=== PATIENT | male | born 1965 | race Caucasian/White ===

== ENCOUNTER 2018-03-02 18:29 | Emergency (ER) | payer OTHER ==
[~2018-03-02] VITALS: Ht 172.7 cm; Wt 95.3 kg
[~2018-03-02 18:29] MED LIST: HYDROCODONE-AP1 EAC6 PO; IBUPROFEN 800800 M1 PO
[2018-03-02] MEDS ORDERED: NORCO 5-325 TA1 EAC1 PO (19:20)
[2018-03-02 19:46] VITALS: BP 140/91
== END 2018-03-02 19:47 | disposition home or self-care (01) ==
LOC: M.ERS 18:29
DX: S62.112A Displaced fracture of triquetrum [cuneiform] bone, left wrist, initial encounter for closed fracture (principal); F17.210 Nicotine dependence, cigarettes, uncomplicated; W17.89XA Other fall from one level to another, initial encounter; Y93.89 Activity, other specified; Y92.89 Other specified places as the place of occurrence of the external cause; Y99.8 Other external cause status

== ENCOUNTER 2021-05-25 20:36 | Emergency (ER) | payer OTHER ==
[~2021-05-25] VITALS: Ht 172.7 cm; Wt 99.8 kg
[~2021-05-25 20:36] MED LIST changes: +NORCO 5-325 TA1 EAC1 PO
[2021-05-25 21:20] LABS: ABSOLUTE BASOPHILS 0.1 thou/uL (0.0-0.2); ABSOLUTE EOSINOPHILS 0.2 thou/uL (0.0-0.7); ABSOLUTE MONOCYTES 0.7 thou/uL (0.0-1.2); ABSOLUTE NEUTROPHILS 4.9 thou/uL (1.6-8.1); BASOPHILS 0.9 %; EOSINOPHILS 2.1 %; HEMATOCRIT 43.2 % (42.0-52.0); HEMOGLOBIN 14.7 gm/dL (14.0-18.0); LYMPHOCYTES 34.5 %; MCH 30.6 pg (26.0-34.0); MCV 90.1 fL (80.0-100.0); MONOCYTES 7.6 %; MPV 7.3 fl. (7.2-11.1); NUCLEATED RBCS 0 /100WBC; PLATELET COUNT* 257 thou/uL (150-400); POLYS 54.9 %; RBC 4.79 mil/uL (4.50-6.00); RDW-CV 13.8 % (10.5-14.5); WBC 8.8 thou/uL (4.0-11.0)
[2021-05-25 21:28] LABS: CALCIUM 8.5 mg/dL (8.5-10.1); CREATININE 1.2 mg/dL (0.6-1.3); POTASSIUM 3.9 mmol/L (3.5-5.1)
[2021-05-25 21:31] LABS: APTT 26.9 Seconds (25.0-31.3); PROTIME 10.7 Seconds (9.20-11.50)
[2021-05-25 21:32] LABS: ALBUMIN 3.8 g/dL (3.4-5.0); TOTAL BILIRUBIN 0.5 mg/dL (<0.1-1.0); TOTAL PROTEIN 7.2 g/dL (6.4-8.2)
[2021-05-25 22:58] VITALS: BP 106/67
--- NOTE | 2021-05-26 10:12 | EKG ---
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[employer] Vehicle: [place] : [id number] Requested By: Kasia Rondon Order Number: [id number] MD: Adriano Renner Measurements Intervals [place] Rate: 101 P: -5 [place]: 160 QRS: -24 QRSD: 92 T: 26 QT: 338 QTc: 439 Interpretive Statements Sinus tachycardia Borderline left axis deviation Abnormal R-wave progression, late transition Baseline wander in lead(s) I,III,aVL No previous ECG available for comparison Electronically Signed On 05-26-2021 10:12:18 CDT by Adriano Renner [email or web address] <ELECTRONICALLY SIGNED> By: Adriano Renner MD, FAC 05/26/21 1012 34 34 Adriano Renner MD, [facility] /EPI
== END 2021-05-25 22:59 | disposition left against medical advice (07) ==
LOC: M.ERS 20:36
PROVIDERS: Personal Emergency Response Attendant
DX: R06.2 Wheezing (principal); Z20.822 Contact with and (suspected) exposure to COVID-19